=== PATIENT | female | born 1980 | race American Indian/Alaskan Native ===

== ENCOUNTER 2016-09-29 12:08 | Day surgery (SDC) | payer MEDICAID ==
[~2016-09-29 12:08] MED LIST: ANCEF/STERILE WATER 2 GM/20 ML 2 GM/20 ML SYRINGE IV NR; NACL 0.9% 1000 ML 1,000 ML IV SCH; PEPCID PO NR
[2016-09-29] MEDS ORDERED: DIPRIVAN 10 MG/ML IV ONE (13:47)
[2016-09-29] MEDS ORDERED: DILAUDID ONE (13:47)
[2016-09-29] MEDS ORDERED: XYLOCAINE MPF 2% ONE (13:47)
[2016-09-29] MEDS ORDERED: ZOFRAN ONE (13:47)
--- NOTE | 2016-09-29 13:48 | Anesthesia Consultation ---
Anesthesia Consult and Med Hx Date of service: 09/29/16 - Airway Anesthetic Teeth Evaluation: Good ROM Head & Neck: Adequate Mental/Hyoid Distance: Adequate Mallampati Class: Class II Intubation Access Assessment: Probably Good - Pre-Operative Health Status ASA Pre-Surgery Classification: ASA2 Proposed Anesthetic Plan: General - Pulmonary Hx Smoking: No Hx Sleep Apnea: No (EZ PRE SCREEN NEGATIVE) - Cardiovascular System Hx Hypertension: No - Central Nervous System Hx Back Pain: Yes - Endocrine Hx Renal Disease: No (reccurent UTIs) - Other Systems Hx Cancer: No
--- NOTE | 2016-09-29 13:49 | Anesthesia Day of Surgery ---
Anesthesia Day of Surgery - Day of Surgery Patient Examined: Yes Patient H&P Reviewed: Yes Patient is NPO: Yes
[2016-09-29] MEDS ORDERED: PEPCID IV ONE (13:50)
[2016-09-29] MEDS ORDERED: NACL BACTERIOSTATIC INFILTRATI ONE (13:53)
[2016-09-29] MEDS: VERSED IV NR ×2 (14:26→14:43)
[2016-09-29] MEDS ORDERED: ZOFRAN IV PRN (15:09)
[2016-09-29] MEDS ORDERED: WATER FOR IRRIG STERILE IR ONE (15:36)
[2016-09-29] MEDS ORDERED: OMNIPAQUE (300 MG) IR ONE (15:42)
--- NOTE | 2016-09-29 16:22 | Short Stay Summary ---
Short Stay Documentation Date of service: 09/29/16 - History H&P: obtained from office - Allergies and Medications Current Medications: Allergies acetaminophen Allergy (Verified 09/23/16 15:56) Itching amitriptyline Allergy (Verified 09/23/16 15:56) Hives benzocaine Allergy (Verified 09/23/16 15:56) Hives clindamycin Allergy (Verified 09/23/16 15:56) Rash codeine Allergy (Verified 09/23/16 15:56) Swelling cyclobenzaprine Allergy (Verified 09/23/16 15:56) Hives diclofenac Allergy (Verified 09/23/16 15:56) Hives diflunisal [From Dolobid] Allergy (Verified 09/23/16 15:56) Hives ibuprofen Allergy (Verified 09/23/16 15:56) Itching latex Allergy (Verified 09/23/16 15:56) Rash metronidazole Allergy (Verified 09/23/16 15:56) Hives miconazole Allergy (Verified 09/23/16 15:56) Hives nitrofurantoin Allergy (Verified 09/29/16 13:18) Itching NSAIDS (Non-Steroidal Anti-Inflamma Allergy (Verified 09/23/16 15:56) Hives prednisone Allergy (Verified 09/23/16 15:56) Hives propoxyphene napsylate [From Darvocet-N] Allergy (Verified 09/23/16 15:56) Itching topiramate Allergy (Verified 09/23/16 15:56) Hives tramadol Allergy (Verified 09/23/16 15:56) Hives Home Medications Medication Instructions Recorded Confirmed Last Taken Type Fluconazole [Diflucan TAB] 100 mg PO PRN PRN 09/23/16 09/29/16 Unknown History Morphine ER [Ms Contin ER] 15 mg PO PRN PRN 09/23/16 09/29/16 09/29/16 History Nitrofurantoin Macrocrysta(Nf) 100 mg PO DAILY 09/23/16 09/29/16 09/25/16 09:00 History [Macrodantin CAP] SUMAtriptan SUCCINATE [SUMAtriptan 100 mg PO PRN PRN 09/23/16 09/29/16 09/27/16 21:00 History Succinate] diphenhydrAMINE [Benadryl CAP] 50 mg PO Q8HR PRN 09/23/16 09/29/16 09/27/16 09: 00 History Amoxicillin/Potassium Clav 1 each PO BID 09/29/16 09/29/16 09/28/16 21:00 History [Amox-Clav 250-125 mg Tablet] Active Medications Hydromorphone HCl (Dilaudid) 0.5 mg IV Q10MIN PRN PRN Reason: Pain , Severe (7-10) Stop: 09/29/16 23:59 Cefazolin Sodium (Ancef/Sterile Water 2 Gm/20 Ml) 2 gm in 20 mls @ 80 mls/hr IV PREOP NR PRN Reason: Protocol Stop: 09/29/16 23:59 Sodium Chloride (Nacl 0.9% 1000 Ml) 1,000 mls @ 75 mls/hr IV DIRECT NATALIA Last Admin: 09/29/16 14:47 Dose: 75 mls/hr Midazolam HCl (Versed) 2 mg IV PREOP NR Stop: 09/29/16 23:59 Last Admin: 09/29/16 14:26 Dose: 2 mg - Brief post op/procedure progress note Date of procedure: 09/29/16 Pre-op diagnosis: pelvic apin Post-op diagnosis: other (bladder stone, left distal ureteral stricture) Procedure: cysto,bilat rpg, EHL bladder stone, left balloon distal stricture, left ureteroscopy stent with external string Anesthesia: LISA Surgeon: YARY LEVINE Pathology: list (stone with pt) Condition: stable - Hospital course Hospital course: dilaudid on chart,pt has abx, post op info - Disposition Condition at discharge: Stable Disposition: DC-01 TO HOME OR SELFCARE Short Stay Discharge Plan Follow up with: VOLODYMYR TY MD [Primary Care Provider] - 7 Days
[2016-09-29] MEDS: DILAUDID IV PRN ×4 (16:40→17:15)
--- NOTE | 2016-09-29 16:42 | Post Anesthesia Evaluation ---
- Post Anesthesia Evaluation Patient Participated: Yes Airway Patent: Yes Stable Respiratory Function: Yes Nausea/Vomiting: No Temp > 96.8F: Yes Pain Manageable: Yes Adequeate Hydration: Yes Anesthesia Complications: No
[2016-09-29] MEDS ORDERED: VERSED IV ONE (18:00)
[2016-09-29 21:05] VITALS: BP 106/60
--- NOTE | 2016-09-29 21:45 | Operative Report ---
PREOPERATIVE DIAGNOSES: Pelvic pain, hematuria. POSTOPERATIVE DIAGNOSES: Pelvic pain, hematuria, bladder stone, left distal ureteral stricture. PROCEDURE: Cystoscopy, bilateral retrograde pyelograms, electrohydraulic lithotripsy of bladder stones and extraction, left balloon dilatation of distal ureter, left ureteroscopy, left double-J stent (6-Togolese 24 cm) with an external string. SURGEON: Francisco Hernandez MD ANESTHESIA: General. ANESTHESIOLOGIST: Lolita Higgins MD ESTIMATED BLOOD LOSS: Minimal. FLUIDS: Crystalloid. COMPLICATIONS: No complications. INDICATIONS: This patient is a 36-year-old female seen in my office for the first time earlier this month. The patient with diagnosis of recurrent infection and hematuria. The patient states that this started after her in 2014. ____ has a history of stones. She has had fibroid embolization in the past. CT of abdomen and pelvis did not reveal a stone; it suggested fibroids. She presents now for endoscopic evaluation. DESCRIPTION OF PROCEDURE: The patient was taken to the operative suite, placed in a supine position. After adequate general anesthesia, placed in a dorsal lithotomy position, prepped and draped in a sterile fashion. Pancystourethroscopy was performed with 22 Togolese Storz cystoscope. Obvious bladder stone could be appreciated, appeared to be approximately 3 cm in size. Right retrograde pyelogram was obtained with an 8-Togolese Micro catheter and 8 mL of contrast. No filling defects or obstruction. Left side, could not ____ retrograde. Next, using a 5-Togolese EHL probe on 2 electrohydraulic lithotripsy, an evacuation of the stone fragments was performed. They will be given to the patient and I will send some off for analysis. I was able to do a rigid ureteroscopy and advance the wire up the left ureter, switched out to a cystoscope and balloon dilatation of the stricture with 18-Togolese balloon. Ureteroscopy up to the renal pelvis unremarkable, just significant edema in the distal ureter as well that was in the bladder. I did not see a bladder stitch or any nidus for the stone. A 6-Togolese 24 cm double-J stent with an external string was left indwelling. She was extubated and taken to recovery room. She has antibiotics. She will go home on Dilaudid and follow up in the office. JOB# [id number] ELLEN/SHAWN
--- NOTE | 2016-10-01 11:37 | Fluoroscopy Report ---
FLUOROSCOPY RETROGRADE UROGRAPHY FLUOROSCOPY URETER/NEPHROSTOMY DILATATION LEFT History: Bladder stone, left ureteral stricture, pain. Findings: Fluoroscopy was provided by radiology during retrograde urography by urology. 12 fluoroscopic images were captured. Director Instructional Material film of the abdomen is unremarkable. No obvious urinary calcifications. The right pyelogram is unremarkable. Left ureteral stricture was noted on the operative notes but is not clearly demonstrated on the fluoroscopic images. This stricture may be in the distal left ureter near the UVJ. Subsequent images demonstrate left ureteral dilatation and placement of a double-J left ureteral stent which is in good position and adequately drains the left collecting system on the final image. Please correlate with the procedural report. Impression: Left ureteral stricture. Left ureteral stent placement.
== END 2016-09-29 19:00 | disposition home or self-care (01) ==
LOC: OR 12:08
PROVIDERS: ATTEND Urology
DX: N21.0 Calculus in bladder (principal); N13.5 Crossing vessel and stricture of ureter without hydronephrosis; Z87.440 Personal history of urinary (tract) infections; Z88.5 Allergy status to narcotic agent; Z88.8 Allergy status to other drugs, medicaments and biological substances; Z88.3 Allergy status to other anti-infective agents; Z91.040 Latex allergy status; Z98.890 Other specified postprocedural states; Z82.0 Family history of epilepsy and other diseases of the nervous system; Z82.3 Family history of stroke; Z83.52 Family history of ear disorders; Z80.0 Family history of malignant neoplasm of digestive organs; Z84.1 Family history of disorders of kidney and ureter
CPT/HCPCS: 52318; 52332; 74420; 74485; 81025; A4217; C1726; C1758; C2617; J0690; J1170; J2250; J2405; J2704; J7030; Q9967